=== PATIENT | female | born 1965 | race Caucasian/White ===

== ENCOUNTER 2022-05-15 20:10 | Inpatient (IN) | payer BC ==
[~2022-05-15] VITALS: Ht 160 cm; Wt 76.2 kg
[~2022-05-15 20:10] MED LIST: ASPI-986 PO; ATEN-42 PO; INSULIN
[2022-05-15] MEDS ORDERED: MECLIZINE 25MG TABLET PO ONE (22:30)
[2022-05-16] VITALS (7 sets, daily range): BP systolic 125–146; BP diastolic 51–85
[2022-05-16] MEDS ORDERED: MECLIZINE 25MG TABLET PO NR (01:44)
[2022-05-16] MEDS ORDERED: SODIUM CHLORIDE 0.9% 1,000 ML IV ONE (01:45)
[2022-05-16 02:30] LABS: CHLORIDE 97 mEq/L (98-107)
[2022-05-16 02:35] LABS: MEAN CORPUSCULAR HEMOGLOBIN 31.1 pg (28.0-32.0); MEAN CORPUSCULAR VOLUME 94.2 fL (81.0-99.0); MEAN PLATELET VOLUME 8.8 fl (7.4-10.4); PLATELET 310 x1000/uL (130-400); RED BLOOD CELL COUNT 2.13 mill/uL (4.2-5.4); RED CELL DISTRIBUTION WIDTH 17.6 % (11.6-14.6)
[2022-05-16 03:09] LABS: HEMATOCRIT. 20.1 % (36.0-48.0); HEMOGLOBIN. 6.6 g/dL (12.0-16.0)
[2022-05-16 04:21] LABS: PLATELET ESTIMATE NORMAL
[2022-05-16] MEDS ORDERED: DEXTROSE 50% WATER 50ML SYRINGE IV PRN (07:45)
[2022-05-16] MEDS ORDERED: DOCUSATE SODIUM 100MG CAPSULE PO PRN (07:45)
[2022-05-16] MEDS ORDERED: IPRATROPIUM/ALBUTEROL 0.5-3(2.5)MG/3ML NEB NEB PRN (07:45)
[2022-05-16] MEDS ORDERED: TRAMADOL 50MG TABLET PO PRN (07:45)
[2022-05-16] MEDS ORDERED: MAGNESIUM/ALUMINUM HYDROXIDE/SIMETHICONE 30ML UDC PO PRN (07:45)
[2022-05-16] MEDS ORDERED: ACETAMINOPHEN 325MG TABLET PO PRN ×2 (07:45)
[2022-05-16] MEDS ORDERED: ONDANSETRON HCL 4MG/2ML INJ IV PRN (07:45)
[2022-05-16] MEDS ORDERED: GUAIFENESIN 200MG/10ML SUGAR FREE UDC PO PRN (07:45)
[2022-05-16] MEDS ORDERED: DIPHENHYDRAMINE 50MG/ML VIAL IV PRN (07:45)
[2022-05-16] MEDS: PANTOPRAZOLE SODIUM 40 MG/VIAL IV SCH (09:26)
[2022-05-16 10:10] LABS: BG BASE EXCESS -2.5 mmol/L (-2.0-2.0); BG CARBOXYHEMOGLOBIN 0.2 % (0.5-1.5); BG DEOXYHEMOGLOBIN 8.9 % (0.0-5.0); BG FRACTION INSPIRED OXYGEN 32; BG HCO3 ACT 21.7 mmol/L (22.0-26.0); BG METHEMOGLOBIN 1.2 % (0.0-1.5); BG OXYHEMOGLOBIN 89.7 % (94.0-97.0); BG PCO2 34.5 mmHg (35.0-45.0); BG PH 7.416 (7.350-7.450); BG PO2 63.8 mmHg (75.0-100.0); BG SAMPLE SITE LEFT BRACHIAL; BG TOTAL HEMOGLOBIN 8.6 g/dL (12.0-18.0); BG VENT MODE NASAL CANNULA
[2022-05-16] MEDS: BLOOD SUGAR DIAGNOSTIC STRIP TEST SCH ×3 (12:22→20:53)
[2022-05-16] MEDS: INSULIN LISPRO 100 UNITS/ML SUBCUT SCH ×3 (12:23→20:52)
[2022-05-16 16:00] LABS: VITAMIN B12 SERUM >2000 pg/mL pg/mL (211-911)
[2022-05-16 17:12] LABS: CREATINE KINASE MB FRACTION 3.4 ng/mL (0.5-3.6)
[2022-05-16] MEDS ORDERED: ZOLPIDEM TARTRATE 5MG TABLET PO PRN (21:00)
[2022-05-16] MEDS ORDERED: EPOETIN ALFA 10000UNITS/ML VIAL SUBCUT SCH (21:00)
[2022-05-16 21:07] LABS: HEMATOCRIT 29.4 % (36.0-48.0); HEMOGLOBIN 9.6 g/dL (12.0-16.0)
[2022-05-17] VITALS: BP 134/69
[2022-05-17 00:13] LABS: CREATINE KINASE MB FRACTION 3.4 ng/mL (0.5-3.6)
[2022-05-17 04:00] VITALS: BP 126/57
[2022-05-17] MEDS: BLOOD SUGAR DIAGNOSTIC STRIP TEST SCH ×4 (05:59→20:47)
[2022-05-17] MEDS: INSULIN LISPRO 100 UNITS/ML SUBCUT SCH ×4 (06:29→20:50)
[2022-05-17 06:41] LABS: BASOPHILS % 1.3 % (0.0-2.0); HEMATOCRIT. 33.3 % (36.0-48.0); HEMOGLOBIN. 11.2 g/dL (12.0-16.0); MEAN CORPUSCULAR HEMOGLOBIN 29.5 pg (28.0-32.0); MEAN CORPUSCULAR VOLUME 87.6 fL (81.0-99.0); MEAN PLATELET VOLUME 9.4 fl (7.4-10.4); MONOCYTES % 9.7 % (2.0-8.0); PLATELET 340 x1000/uL (130-400); RED CELL DISTRIBUTION WIDTH 20.8 % (11.6-14.6)
[2022-05-17 07:21] LABS: CHLORIDE 96 mEq/L (98-107)
[2022-05-17 07:31] LABS: PHOSPHORUS 5.7 mg/dL (2.5-4.9)
[2022-05-17 08:00] VITALS: BP 148/71
[2022-05-17] MEDS: PANTOPRAZOLE SODIUM 40 MG/VIAL IV SCH (08:13)
[2022-05-17] MEDS ORDERED: LACTULOSE 20G/30ML UDC PO PRN (10:30)
[2022-05-17] MEDS ORDERED: NALOXONE HCL 0.4MG/ML VIAL IV PRN (10:45)
[2022-05-17 12:00] VITALS: BP 153/76
[2022-05-17 16:00] VITALS: BP_SYST 147; BP_SYST 153; BP_SYST 159; BP_DIAS 57; BP_DIAS 65; BP_DIAS 69
[2022-05-17 20:00] VITALS: BP 149/79
[2022-05-18] VITALS: BP 155/66
[2022-05-18 04:00] VITALS: BP 151/63
[2022-05-18] MEDS: BLOOD SUGAR DIAGNOSTIC STRIP TEST SCH ×4 (06:06→21:00)
[2022-05-18] MEDS: INSULIN LISPRO 100 UNITS/ML SUBCUT SCH ×4 (06:06→21:00)
[2022-05-18 08:00] VITALS: BP 161/64
[2022-05-18 08:23] LABS: BASOPHILS % 0.9 % (0.0-2.0); EOSINOPHILS % 1.3 % (0.0-5.0); HEMATOCRIT. 31.3 % (36.0-48.0); HEMOGLOBIN. 10.5 g/dL (12.0-16.0); LYMPHOCYTES % 10.4 % (20.0-50.0); MEAN CORPUSCULAR HEMOGLOBIN 29.5 pg (28.0-32.0); MEAN CORPUSCULAR VOLUME 87.4 fL (81.0-99.0); MEAN PLATELET VOLUME 8.3 fl (7.4-10.4); MONOCYTES % 9.8 % (2.0-8.0); NEUTROPHILS % 77.6 % (40.0-76.0); PLATELET 290 x1000/uL (130-400); RED BLOOD CELL COUNT 3.58 mill/uL (4.2-5.4); RED CELL DISTRIBUTION WIDTH 20.3 % (11.6-14.6)
[2022-05-18] MEDS: CLONIDINE 0.1MG TABLET PO PRN (08:29)
[2022-05-18] MEDS: PANTOPRAZOLE SODIUM 40 MG/VIAL IV SCH (08:29)
[2022-05-18 08:51] LABS: PHOSPHORUS 5.6 mg/dL (2.5-4.9)
[2022-05-18 12:00] VITALS: BP 145/63
[2022-05-18 16:00] VITALS: BP 154/78
[2022-05-18 20:00] VITALS: BP 154/75
[2022-05-19] VITALS: BP 155/74
[2022-05-19 04:00] VITALS: BP 151/74
[2022-05-19] MEDS: BLOOD SUGAR DIAGNOSTIC STRIP TEST SCH ×4 (06:27→21:53)
[2022-05-19] MEDS: INSULIN LISPRO 100 UNITS/ML SUBCUT SCH ×4 (06:37→21:57)
[2022-05-19 07:56] LABS: HEMATOCRIT. 31.2 % (36.0-48.0); HEMOGLOBIN. 10.4 g/dL (12.0-16.0); MEAN CORPUSCULAR HEMOGLOBIN 29.4 pg (28.0-32.0); MEAN CORPUSCULAR VOLUME 88.4 fL (81.0-99.0); MEAN PLATELET VOLUME 8.3 fl (7.4-10.4); PLATELET 282 x1000/uL (130-400); RED BLOOD CELL COUNT 3.52 mill/uL (4.2-5.4); RED CELL DISTRIBUTION WIDTH 19.8 % (11.6-14.6)
[2022-05-19 08:00] VITALS: BP 157/66
[2022-05-19 08:11] LABS: PHOSPHORUS 5.2 mg/dL (2.5-4.9)
[2022-05-19] MEDS: PANTOPRAZOLE SODIUM 40 MG/VIAL IV SCH (08:25)
[2022-05-19 12:00] VITALS: BP 143/69
[2022-05-19] MEDS ORDERED: MAGNESIUM 2 G PREMIX 50 ML IV NR (13:00)
[2022-05-19 16:00] VITALS: BP 158/78
[2022-05-19 21:00] VITALS: BP 173/79
[2022-05-19] MEDS: CLONIDINE 0.1MG TABLET PO PRN (21:27)
[2022-05-20] VITALS (7 sets, daily range): BP systolic 109–179; BP diastolic 68–88
[2022-05-20] MEDS: BLOOD SUGAR DIAGNOSTIC STRIP TEST SCH ×3 (06:24→20:42)
[2022-05-20] MEDS: INSULIN LISPRO 100 UNITS/ML SUBCUT SCH ×4 (06:26→20:43)
[2022-05-20 07:17] LABS: HEMATOCRIT. 32.6 % (36.0-48.0); MEAN CORPUSCULAR HEMOGLOBIN 29.7 pg (28.0-32.0); MEAN CORPUSCULAR VOLUME 87.9 fL (81.0-99.0); MEAN PLATELET VOLUME 8.1 fl (7.4-10.4); PLATELET 270 x1000/uL (130-400); RED BLOOD CELL COUNT 3.71 mill/uL (4.2-5.4); RED CELL DISTRIBUTION WIDTH 19.7 % (11.6-14.6)
[2022-05-20 07:56] LABS: PHOSPHORUS 5.3 mg/dL (2.5-4.9)
[2022-05-20] MEDS: CLONIDINE 0.1MG TABLET PO PRN ×2 (09:27→17:16)
[2022-05-20] MEDS: PANTOPRAZOLE SODIUM 40 MG/VIAL IV SCH (09:27)
[2022-05-20 12:32] LABS: NUCLEATED RED BLOOD CELLS 3 /100 WBC; PLATELET ESTIMATE NORMAL
[2022-05-20] MEDS ORDERED: ATENOLOL 25MG TABLET PO SCH (13:31)
[2022-05-20 16:48] LABS: PLATELET ESTIMATE NORMAL
== END 2022-05-20 21:40 | disposition home or self-care (01) | DRG 88 ==
LOC: ER 20:10 → MICUSO 05-16 04:42 → 8WST 05-16 10:40
PROVIDERS: ADMIT Internal Medicine; ATTEND Internal Medicine
PROC: 30233N1 Transfusion of Nonautologous Red Blood Cells into Peripheral Vein, Percutaneous Approach (ICD-10-PCS; principal; 2022-05-16)
PROC: 3E1M39Z Irrigation of Peritoneal Cavity using Dialysate, Percutaneous Approach (ICD-10-PCS; 2022-05-16)
DX: S06.0X9A Concussion with loss of consciousness of unspecified duration, initial encounter (principal); E43 Unspecified severe protein-calorie malnutrition; J18.9 Pneumonia, unspecified organism; J96.91 Respiratory failure, unspecified with hypoxia; N18.6 End stage renal disease; I13.2 Hypertensive heart and chronic kidney disease with heart failure and with stage 5 chronic kidney disease, or end stage renal disease; E87.1 Hypo-osmolality and hyponatremia; J90 Pleural effusion, not elsewhere classified; I50.30 Unspecified diastolic (congestive) heart failure; R55 Syncope and collapse; D63.1 Anemia in chronic kidney disease; E78.5 Hyperlipidemia, unspecified; E87.70 Fluid overload, unspecified; E83.51 Hypocalcemia; E11.22 Type 2 diabetes mellitus with diabetic chronic kidney disease; E66.9 Obesity, unspecified; Z99.2 Dependence on renal dialysis; Z79.899 Other long term (current) drug therapy; Z68.29 Body mass index [BMI] 29.0-29.9, adult; Z82.49 Family history of ischemic heart disease and other diseases of the circulatory system; Z83.3 Family history of diabetes mellitus; Z86.73 Personal history of transient ischemic attack (TIA), and cerebral infarction without residual deficits
CPT/HCPCS: 36415; 36600; 70486; 71045; 71250; 80048; 80053; 80061; 82270; 82375; 82550; 82553; 82607; 82746; 82805; 82962; 83036; 83540; 83550; 83605; 83735; 83880; 84100; 84145; 84443; 84484; 85014; 85018; 85025; 86850; 86900; 86920; 93005; 93970; 97161; 97162; 97165; 97166; 99285; C9113; J0885; J1815; J2405; J3475; J8597; P9016